=== PATIENT | male | born 1970 | race Caucasian/White ===

== ENCOUNTER 2016-10-13 15:01 | Emergency (ER) | payer SELFPAY ==
--- NOTE | ~2016-10-13 | EKG ---
PATIENT: NICHOL ORDAZ UNIT #: [id number] Ventricular Rate: 91 BPM Atrial Rate: 91 BPM P-R Interval: 166 ms QRS Duration: 98 ms Q-T Interval: 364 ms QTC Calculation(Bezet): 447 ms P Early: 56 degrees Calculated R Early: 18 degrees Calculated T Early: 8 degrees Diagnosis Line: Normal sinus rhythm T wave abnormality, consider Diagnosis Line: lateral ischemia Diagnosis Line: Borderline ECG Diagnosis Line: No previous ECGs available Diagnosis Line: Confirmed by DENISE ZARATE MD ([id number]) on 10/20/2016 Diagnosis Line: 11:53:34 AM INTERPRETING MD: ELLIOT SHANNON
--- NOTE | ~2016-10-13 | CR72 ---
[facility] A Service of [facility] & [facility] RADIOLOGY TEXT RESULTS PATIENT: NICHOL ORDAZ LOCATION: SED : 70 UNIT #: [id number] AGE: [address]: Dorian Santana MD SEX: M ORDER DR: [id number] [place] [id number] E MR#: [id number] Acc #: [id number] NAME: NICHOL ORDAZ : 1970 SEX: M STUDY DATE/TIME: 10/13/2016 14:27 UNIT: SED ROOM: STUDY DESCRIPTION: CR Chest Single View Portable Attending Physician: Dorian Santana M.D. Ordering Physician: Dorian Santana M.D. Primary Care Physician: Elijah Ferro M.D. MEDICAL IMAGING REPORT This report is preliminary unless electronic signature is present. EXAM Portable chest 10/13/2016 INDICATIONS Nausea, vomiting and diarrhea for 4 days with cough. History of smoking. AP portable chest is compared with 06/25/2010. FINDINGS Heart is enlarged. Lung volumes are low but the lungs are clear. No pneumothorax. IMPRESSION Cardiomegaly with low-volume inspiration. No acute findings in the chest. Dictated by... Lalit Roque Jr., M.D. THIS IS AN ELECTRONICALLY VERIFIED REPORT Lalit Roque Jr., M.D. at 10/14/2016 4:46 PM DOMENICA/fernanda TD: 10/13/2016 15:55 JOB #: [id number] MEDICAL IMAGING REPORT Page 1 of 1
[2016-10-13 14:10] LABS: BASOPHIL# 0.1 X10e3 (0-0.3); BASOPHIL% 0.5 % (0-2.5); EOSINOPHIL# 0.1 X10e3 (0-0.7); EOSINOPHIL% 0.7 % (0.0-7.0); HEMATOCRIT 44.3 % (38.0-50.0); HEMOGLOBIN 15.2 gm/dL (13.0-16.0); LYMPHOCYTE# 3.2 X10e3 (1.0-3.5); LYMPHOCYTE% 21.5 % (17.0-45.0); MEAN CELL VOLUME 83.6 FL (83-96); MEAN CORPUSCULAR HEMOGLOBIN 28.7 PG (28-34); MEAN CORPUSCULAR HGB CONC 34.4 g/dL (30-36); MEAN PLATELET VOLUME 7.6 FL (6.5-11.5); MONOCYTE# 1.1 X10e3 (0-1.0); NEUTROPHIL# 10.5 X10e3 (1.5-7.1); NEUTROPHIL% 70.3 % (40-75); PLATELET COUNT 297 X10e3 (140-420); RED CELL DISTRIBUTION WIDTH 13.2 % (11.0-15.5)
[2016-10-13 14:23] LABS: DIFF IND NO
[2016-10-13 14:24] LABS: ALBUMIN SERUM 4.5 g/dL (3.5-5.0); BILIRUBIN, DIRECT 0.2 mg/dL (0.0-0.2); BILIRUBIN,INDIRECT 0.9 mg/dL (0.0-0.9); BILIRUBIN,TOTAL 1.1 mg/dL (0.2-2.0); BUN/CREATININE RATIO 14.66; CALCIUM SERUM 10.2 mg/dL (8.4-10.2); CREATININE SERUM 1.5 mg/dL (0.6-1.4); GLOM FILT RATE Estimated 55.1 mL/min (>60); POTASSIUM 3.2 mmol/L (3.5-5.1); PROTEIN TOTAL SERUM 7.6 g/dL (6.0-8.3)
[2016-10-13 14:27] LABS: POC - CKMB 3.3 ng/mL (0.0-7.9); POC - TROPONIN <0.05 ng/mL (<=0.05)
[2016-10-13 14:40] LABS: URINE SOURCE CLEAN CATCH
[2016-10-13 14:42] LABS: URINE APPEARANCE CLEAR; URINE BLOOD NEG (NEG); URINE COLOR YELLOW; URINE GLUCOSE NEG (NORM); URINE KETONE 1+ (NEG); URINE LEUKOCYTE ESTERASE NEG (NEG); URINE NITRATE NEG (NEG); URINE PROTEIN NEG (NEG); URINE SPECIFIC GRAVITY 1.025 (1.003-1.035); URINE UROBILINOGEN 0.2 MG/DL (NORM)
[2016-10-13 14:49] LABS: MICRO INDICATED? NO; URINE BILIRUBIN NEG (NEG)
[~2016-10-13 15:01] MED LIST: METFORMIN; MUSCLE RELAXER; UNKNOWN B/P MED; VICODIN 5/500 T1 TAB PO; ZESTORETIC 20/11 TAB PO
== END 2016-10-13 15:52 | disposition home or self-care (01) ==
LOC: SED 15:01
PROVIDERS: Emergency Medicine
DX: E86.0 Dehydration (principal); E11.9 Type 2 diabetes mellitus without complications; Z79.84 Long term (current) use of oral hypoglycemic drugs; I10 Essential (primary) hypertension; F17.200 Nicotine dependence, unspecified, uncomplicated; Z88.8 Allergy status to other drugs, medicaments and biological substances; Z79.899 Other long term (current) drug therapy
CPT/HCPCS: 36415; 71010; 80048; 80076; 81003; 82150; 82553; 83690; 84484; 85025; 93005; 96361; 96372; 96374; 96375; 99284; J0500; J2405